=== PATIENT | female | born 1945 | race Caucasian/White ===

== ENCOUNTER 2020-09-19 08:38 | Observation (INO) ==
--- NOTE | 2020-08-19 14:27 | PAT Medication Instructions ---
Medication Instructions Date of Service August 19, 2020 Home Medications Fish Oil 1 cap PO QPM albuterol sulfate 1 inh INHALATION QID PRN aspirin 81 mg PO QAM atenolol 25 mg PO HS atorvastatin [Lipitor] 10 mg PO HS cholecalciferol (vitamin D3) 125 mcg PO QPM fluticasone furoate [Arnuity Ellipta] 1 inh INHALATION QAM fluticasone propionate [Flonase] 1 spray INTRANASAL DAILY PRN hydrochlorothiazide 25 mg PO DAILY PRN irbesartan-hydrochlorothiazide [Avalide] 1 tab PO QAM levothyroxine [Synthroid] 88 mcg PO QAM magnesium oxide 800 mg PO QAM montelukast [Singulair] 10 mg PO PM nitrofurantoin monohyd/m-cryst [Macrobid] 100 mg PO BID pantoprazole [Protonix] 20 mg PO DAILY PRN potassium chloride [Klor-Con M20] 20 meq PO QAM Continue as directed nitrofurantoin monohyd/m-cryst [Macrobid] 100 mg PO BID STOP taking 2 weeks before surgery If surgery is within 2 weeks, stop taking as soon as possible. Fish Oil 1 cap PO QPM DO NOT take the morning of surgery hydrochlorothiazide 25 mg PO DAILY PRN irbesartan-hydrochlorothiazide [Avalide] 1 tab PO QAM magnesium oxide 800 mg PO QAM potassium chloride [Klor-Con M20] 20 meq PO QAM Take morning of surgery With a small sip of water, OTHERWISE NOTHING TO EAT OR DRINK AFTER MIDNIGHT: albuterol sulfate 1 inh INHALATION QID PRN (if needed, and bring with you to the hospital) aspirin 81 mg PO QAM fluticasone furoate [Arnuity Ellipta] 1 inh INHALATION QAM fluticasone propionate [Flonase] 1 spray INTRANASAL DAILY PRN (if needed) levothyroxine [Synthroid] 88 mcg PO QAM pantoprazole [Protonix] 20 mg PO DAILY PRN (if needed) Take evening before surgery albuterol sulfate 1 inh INHALATION QID PRN (if needed) atenolol 25 mg PO HS atorvastatin [Lipitor] 10 mg PO HS cholecalciferol (vitamin D3) 125 mcg PO QPM fluticasone propionate [Flonase] 1 spray INTRANASAL DAILY PRN (if needed) montelukast [Singulair] 10 mg PO PM nitrofurantoin monohyd/m-cryst [Macrobid] 100 mg PO BID pantoprazole [Protonix] 20 mg PO DAILY PRN (if needed) Other Notes If you have any questions please call us at [phone] or [phone] or [phone] or [phone]
--- NOTE | 2020-08-20 11:26 | Anesthesiology Consultation ---
Date of Service August 20, 2020 Assessment & Plan (1) Encounter for pre-operative examination: COVID Status: As of 08/20 assessment, patient denies travel to endemic area, known exposure/sick contacts, or symptoms of COVID19. Patient instructed that they and their household members must follow strict social distancing guidelines, wear a mask in public and avoid travel for 14 days prior to surgery. Preoperative COVID19 testing to be completed prior to surgery per surgeon's a rrangements (pt instructed 09/15). Patient made aware to self-isolate as much as possible between COVID testing and surgery. Pulmonary Clearance 08/20/20 = "Based on recent PFTs, patient's fair exercise capacity, and very minimal exertional dyspnea, i believe she would be at low risk of pulmonary complications related to general anesthesia associated with knee surgery." Chart Review Chart Review: Acceptable Risk for Surgery and Patient seen in Pre Admission Testing Teaching & Discussion Instructed NPO after midnight before surgery, except medications with 15 cc of water. Medication instructions provided according to the PAT guidelines. History Surgery Operation Date: 09/19/20 11:10 Proposed Procedures p Right Total Knee Arthroplasty - Ike Alicea MD Height/Weight Height: 5 ft 1 in Weight: 120.3 kg Allergies Allergy/AdvReac Type Severity Reaction Status Date / Time Iodinated Contrast Media Allergy Intermediate HIVES Verified 08/13/20 15:42 Cipro Allergy Unknown RASH Verified 08/04/15 16:10 ciprofloxacin Allergy Unknown RASH Verified 08/13/20 15:42 dicyclomine Allergy Unknown COULDN'T Verified 08/13/20 15:42 FOCUS-BLURRED VISION prochlorperazine Allergy Unknown MORE Verified 08/13/20 15:42 NAUSEA AND VOMITING adhesive tape Allergy itching, Verified 08/13/20 17:13 redness hydrocodone AdvReac Intermediate NV,BURNING Verified 08/13/20 15:42 IN CHEST,COLD AND CLAMMY metoclopramide AdvReac Intermediate BLURRED Verified 08/13/20 15:42 VISION Medications Home Medications Medication Instructions Recorded Confirmed Last Taken Fish Oil 1 cap PO QPM 08/13/20 08/13/20 Unknown albuterol sulfate 1 inh INHALATION QID PRN 08/13/20 08/13/20 Unknown aspirin 81 mg PO QAM 08/13/20 08/13/20 Unknown atenolol 25 mg PO HS 08/13/20 08/13/20 Unknown atorvastatin [Lipitor] 10 mg PO HS 08/13/20 08/13/20 Unknown cholecalciferol (vitamin D3) 125 mcg PO QPM 08/13/20 08/13/20 Unknown [Vitamin D3] fluticasone propionate [Flonase] 1 spray INTRANASAL DAILY PRN 08/13/20 08/13/20 Unknown hydrochlorothiazide 25 mg PO DAILY PRN 08/13/20 08/13/20 Unknown irbesartan-hydrochlorothiazide 1 tab PO QAM 08/13/20 08/13/20 Unknown [Avalide] levothyroxine [Synthroid] 88 mcg PO QAM 08/13/20 08/13/20 Unknown magnesium oxide 800 mg PO QAM 08/13/20 08/13/20 Unknown montelukast [Singulair] 10 mg PO PM 08/13/20 08/13/20 Unknown nitrofurantoin monohyd/m-cryst 100 mg PO BID 08/13/20 08/13/20 Unknown [Macrobid] pantoprazole [Protonix] 20 mg PO DAILY PRN 08/13/20 08/13/20 Unknown potassium chloride [Klor-Con M20] 20 meq PO QAM 08/13/20 08/13/20 Unknown Past Medical History Medical History (Updated 08/20/20 @ 11:27 by Arnold Ray) Arthritis of both knees Asthma Very rare albuterol inhaler use, used a few weeks ago and it had been months since she had used it. Daily Arnuity inhaler was d/c'd 3 months ago by pulmonary to see if OK without it. 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 Daniels in [place] Osteoarthritis Pulmonary hypertension Follows with the lung [facility] in [place]. Recurrent UTI reason for antibiotic Renal atrophy, right Sleep apnea CPAP + oxygen qHS Exercise / Class Metabolic Activity III < 4 Walking/Shop/Light housework (Denies CP or SOB with ambulation on one level) Past Family History Family History Aunt Diabetes Sister Diabetes Other No family history of adverse response to anesthesia Past Surgical History Surgical History History of anesthesia reaction shivering History of arthroscopic knee surgery BL History of cardiac catheterization 1993 - no stents History of cholecystectomy History of colonoscopy History of D&C multiple History of esophagogastroduodenoscopy (EGD) History of foot surgery History of lymph node excision History of repair of left rotator cuff History of surgery EUS History of total abdominal hysterectomy and bilateral salpingo-oophorectomy PICC (peripherally inserted central catheter) removal PONV (postoperative nausea and vomiting) S/P PICC central line placement Past Anesthesia History No Hx of Anesthesia Complications (other than shivering after one surgery) and No Family Hx of Anesthesia Complications History of PONV No Hx of Motion Sickness and History of PONV (single episode) Social History Smoking Status: Never smoker Do You Dip or Chew Tobacco: No Hx Alcohol Use: No Hx Substance Use: No Review of Systems Pt denies any recent chest pain, shortness of breath, cough, fever, URI, or uncontrolled acid reflux. +palpitations occ Physical Exam Vital Signs BP: 137/78 P: 50bpm SPO2: 98% RA T: 97.6 R: 16 Constitutional + morbidly obese ENMT Mouth: + dentures and + edentulous Thyromental Distance: > or= 3.5 Finger Breadths Mallampati Class: II Neck + short neck; neck extension not limited Respiratory normal respiratory effort Auscultation: lungs clear to auscultation bilaterally Cardiovascular Rate/Rhythm: regular rate and regular rhythm Heart Sounds: no murmur Extremities: + edema (LLE 1+, pt reports baseline) Testing Laboratory Results 08/20/20 11:40 08/20/20 11:46 PT 10.5 Seconds (9.0-12.0) 08/20/20 11:40 INR 1.0 (0.9-1.1) 08/20/20 11:40 APTT 27.3 Seconds (21.0-31.0) 08/20/20 11:40 Blood Type A Negative 08/20/20 11:40 Antibody Screen NEGATIVE 08/20/20 11:40 Electrocardiogram Date: 08/20/20 Findings: + SB @ (51bpm) Chest X-Ray Date: 08/20/20 Findings: + NAD
--- NOTE | 2020-08-20 12:15 | XRay Report ---
XR chest Pre-admission PA/Lat CLINICAL HISTORY: Preoperative chest COMPARISON STUDY: No previous studies for comparison. FINDINGS: The heart is borderline enlarged. There is no failure. There is no focal pulmonary consolid ation. There are no pleural effusions. Degenerative changes are present within the dorsal spine.[ IMPRESSION: No active disease in the chest. ACT 112: Negative or not required by law. Electronically signed by: Bertrand Morse M.D. 08/20/2020 12:14 PM
[2020-08-20 12:44] LABS: Basophils # (auto) 0.01 K/uL (0-0.2); Basophils % (auto) 0.2 %; Eosinophils # (auto) 0.31 K/uL (0-0.5); Eosinophils % (auto) 5.6 %; Hemoglobin 13.7 g/dL (12.0-16.0); Lymphocytes # (auto) 1.45 K/uL (1.2-3.4); Lymphocytes % (auto) 26.1 %; Mean Corpuscular Hgb Conc 32.6 g/dL (32-36); Mean Corpuscular Volume 92.1 fL (80-100); Mean Platelet Volume 9.6 fL (7.4-10.4); Monocytes # (auto) 0.49 K/uL (0.11-0.59); Monocytes % (auto) 8.8 %; Neutrophils % (auto) 59.3 %; Platelet Count 164 K/uL (130-400); RDW Coefficient of Variation 13.9 % (11.5-14.5); RDW Standard Deviation 46.2 fL (36.4-46.3); Red Blood Count 4.56 M/uL (4.2-5.4); White Blood Count 5.56 K/uL (4.8-10.8)
[2020-08-20 12:59] LABS: Partial Thromboplastin Time 27.3 Seconds (21.0-31.0); Prothrombin Time 10.5 Seconds (9.0-12.0)
[2020-08-20 13:07] LABS: BUN Creatinine Ratio 28.6 (10-20); Calcium 9.6 mg/dl (8.5-10.1); Creatinine Clr Calc Pharmacy 73.2 ml/min; Est GFR (Non-African American) 73.3
--- NOTE | 2020-08-21 06:05 | Electrocardiogram Report ---
Test Reason : Blood Pressure : / mmHG Vent. Rate : 051 BPM Atrial Rate : 051 BPM P-R Int : 184 ms QRS Dur : 088 ms QT Int : 436 ms P-R-T Axes : 059 028 048 degrees QTc Int : 401 ms Sinus bradycardia Otherwise normal ECG No previous ECGs available Confirmed by Jake Perez ([id number]) on 08/21/2020 6:05:05 AM Referred By: Ike Alicea Confirmed By:Jake Perez
--- NOTE | 2020-09-13 13:25 | History and Physical Report ---
DATE OF ADMISSION: 09/19/2020 CHIEF COMPLAINT: Bilateral knee pain and discomfort, right side greater than left. HISTORY OF PRESENT ILLNESS: The patient is a 75-year-old white female from [place] who presents for surgical treatment of her right knee. She has a long history of knee problems, followed by Dr. Green in [place]. She had her right knee scoped in 2004 and left one in 2005. She has also been seen by Dr. Woo at the [facility] and he has been managing her over the years. She has been treated with NSAIDs, which have limited use anymore. She only has a single kidney, so she has to be careful with NSAID use. She had multiple injections, which helped initially but became less successful over time. She tried viscosupplementation without any relief at all. She has got global pain in both knees. The right knee is worse than the left. She now would like to have her knee fixed. PAST MEDICAL HISTORY: Significant for, 1. Hypothyroidism. 2. Hypertension. 3. Elevated cholesterol. 4. Asthma. 5. Single functioning kidney. 6. Obesity. PAST SURGICAL HISTORY: Includes, 1. Right rotator cuff surgery. 2. Cholecystectomy. 3. Hysterectomy. 4. Foot surgery. ALLERGIES: REGLAN, CIPRO, LORTAB, COMPAZINE. CURRENT MEDICINES: Include, 1. Albuterol. 2. Aspirin. 3. Atenolol. 4. Atorvastatin. 5. Unspecified inhaler. 6. Hydrochlorothiazide. 7. Levothyroxine. 8. Fish oil. 9. Macrobid. 10. Protonix. 11. Singulair. SOCIAL HISTORY: Significant for a 75-year-old white female. She is from [place]. Does not drink. Does not smoke. FAMILY HISTORY: Significant for some blood clots and heart disease. REVIEW OF HISTORY: Negative for diabetes, neurologic problem, vascular problems, bleeding disorders. No chest pain or shortness of breath. No history of DVT or PE. PHYSICAL EXAMINATION: Shows a pleasant elderly female. Examination of the right knee reveals the patient walks with a waddling gait. She has got a fairly large soft tissue envelope. Slight varus deformity to her knee. She is tender over the medial joint line. Range of motion 5-120. No instability. No pain with hip motion. X-RAYS: X-rays of the right knee reveal advanced right knee DJD. She has got complete loss of her medial joint space. She has got osteophytes posteriorly. She has subchondral sclerosis. Both knees are pretty equal. ASSESSMENT: A 75-year-old white female with advanced bilateral knee degenerative joint disease, right side more symptomatic than the left. She has failed conservative treatment and would like to have her right knee replaced. She only has a single functioning kidney, so we have to be careful with non-steroidal anti-inflammatory drug use. PLAN: We will take her to the operating room and do right total knee replacement. The risks and benefits of this procedure were explained to the patient including but not limited to DVT, PE, , infection, neurological injury, vascular injury, bleeding problem, pain, limited range of motion, stiffness, failure to relieve her symptoms, incomplete relief of symptoms, need for further surgery in the future, fracture, leg length inequality, etc. The patient understands and desires to proceed. Informed consent was obtained. We will make sure that she takes her atenolol on the morning of surgery. She is planning to be discharged to home using [facility] home health program. [facility]
[~2020-09-19 08:38] MED LIST: ACETAMINOPHEN 500 MG TAB PO SCH; BUPIVACAINE 0.5 % 5 MG/1 ML PF 10ML VIAL ONE; BUPIVACAINE LIPOSOME/PF 266 MG, BUPIVACAINE/EPINEPHRINE 50 ML, SODIUM CHLORIDE 0.9% 30 ... INFIL SCH; BUPIVACAINE/EPINEPHRINE 0.25% 1:200,000 30 ML VIAL ONE; DEXAMETHASONE SOD INJ 4 MG/ML VIAL ONE; FAMOTIDINE 20 MG TAB PO SCH; GABAPENTIN 300 MG CAP PO SCH; LR 500ML BOLUS, THEN 15ML/HR IV SCH; LR 60ML/HR IV SCH; TRANEXAMIC ACID 1,000 MG **IV Intra-op IV SCH
--- NOTE | 2020-09-19 08:49 | History & Physical Bridge Note ---
Date of Service September 19, 2020 History & Physical Bridge Note I have examined the patient, reviewed the History & Physical and in the interval since the performance of the History & Physical I have noted the following changes of clinical significance: no changes noted
[2020-09-19] MEDS ORDERED: LIDOCAINE HCL 2% 2 ML VIAL/AMP(20MG/ML) INFIL ONE ×2 (09:36→13:05)
[2020-09-19] MEDS ORDERED: PROPOFOL IV EMULSION 10 MG/ML 20 ML VIAL IV ONE ×3 (09:36→13:05)
[2020-09-19] MEDS ORDERED: ONDANSETRON INJ 2 MG/ML 2 ML VIAL ONE (09:37)
[2020-09-19] MEDS ORDERED: fentaNYL citrate 100 MCG/2 ML VIAL ONE (09:37)
[2020-09-19] MEDS ORDERED: MIDAZOLAM HCL 1 MG/ML 2ML VIAL ONE (09:37)
[2020-09-19] MEDS ORDERED: DEXAMETHASONE SOD INJ 4 MG/ML VIAL ONE (09:37)
[2020-09-19] MEDS ORDERED: fentaNYL citrate 100 MCG/2 ML VIAL IV PRN (10:42)
[2020-09-19] MEDS ORDERED: ATROPINE SULFATE 0.1 MG/ML 10ML SYR IV PRN (10:42)
[2020-09-19] MEDS ORDERED: ePHEDrine sulfate 50 MG/ML AMP IV PRN (10:42)
[2020-09-19] MEDS ORDERED: ONDANSETRON INJ 2 MG/ML 2 ML VIAL IV PRN ×2 (10:42→15:10)
[2020-09-19] MEDS ORDERED: SODIUM CHLORIDE 0.9% PF 50 ML VIAL ONE (11:29)
[2020-09-19] MEDS ORDERED: BACITRACIN INJ 50,000 UNIT VIAL ONE (11:30)
[2020-09-19] MEDS ORDERED: BUPIVACAINE LIPOSOME 1.3% 266 MG/20 ML VIAL ONE (11:30)
[2020-09-19] MEDS ORDERED: BUPIVACAINE 0.25% 30 ML VIAL ONE (11:30)
[2020-09-19] MEDS ORDERED: EPINEPHrine INJ 1 MG/ML AMP ONE (11:30)
[2020-09-19] MEDS ORDERED: PHENYLEPHRINE 100MCG/ML 5ML SYR ONE (11:54)
[2020-09-19] MEDS ORDERED: VANCOMYCIN HCL 1000MG/20ML VIAL ONE (11:58)
[2020-09-19] MEDS ORDERED: ePHEDrine sulfate 50 MG/ML SYR ONE (12:12)
--- NOTE | 2020-09-19 13:24 | Post Operative Brief Note ---
PG Immediate Post Op with CF Date of Surgery September 19, 2020 Pre & Post Diagnosis Operation Date: 09/19/20 10:40 Pre-Op Diagnosis: Right Knee Degenerative Joint Disease Post-Op Diagnosis: Right Knee Degenerative Joint Disease I identified the patient and participated in the time-out.: Yes Procedure Operation Date: 09/19/20 10:40 Actual Procedures p Right Total Knee Replacement(Right) - Ike Alicea MD Surgeon Ike Alicea MD Goggles Assembler Melissa, PAC Estimated Blood Loss 50 Findings Consistent with Post-Op Diagnosis Fluids 600 cc Specimens Specimen Description: Permanent Solution: A.) Right Knee Bone and Tissue Drains Schwartz Catheter (16F 10ml balloon; inserted without difficulty by Mckay Torres PA-C.) Anesthesia Type Spinal MAC Complications none Disposition Accompanied Patient To Recovery: No Disposition: Recovery Room
--- NOTE | 2020-09-19 13:36 | Operative Report ---
Post Operative Report Pre & Post Diagnosis Operation Date: 09/19/20 10:40 Pre-Op Diagnosis: Right Knee Degenerative Joint Disease Post-Op Diagnosis: Right Knee Degenerative Joint Disease I identified the patient and participated in the time-out.: Yes Procedure Operation Date: 09/19/20 10:40 Actual Procedures p Right Total Knee Replacement(Right) - Ike Alicea MD Surgeon Ike Alicea MD Barrel Inspector Tight Melissa, PAC Estimated Blood Loss 50 Findings Consistent with Post-Op Diagnosis Operative findings revealed advanced right knee DJD with extensive grade 4 [id number] disease in the medial compartment primarily. She had eburnation the medial femoral condyle and medial tibial plateau. There were significant osteophytes off the medial side of the knee. Moderate-sized joint effusion. Moderate patellofemoral arthritis. Slight varus deformity to her knee. Fluids 600 cc. Specimens Right knee sent for pathology. Drains None. Anesthesia Type Spinal MAC Complications none Disposition Accompanied Patient To Recovery: No Disposition: Recovery Room Indications Patient is a 75-year-old female is had a long history of bilateral knee pain discomfort right side greater than left patient been through extensive conservative treatment the past. She failed all conservative measures. X-rays show advanced right knee DJD. She elected proceed with surgical treatment. Of note, this patient has a BMI of 50. Description of Procedure Operative implants consist of: 1. Biomet Vanguard size 65 right posterior stabilized femoral component. 2. Biomet size 67 tibial tray. 3. 10 mm posterior stabilized polyethylene insert. 4. 28 x 8 all polypatella. The patient was taken to the operating room, identified, and placed on the operating table supine position but all contact areas were properly padded. IV antibiotics arrived by anesthesia team. Spinal anesthetic and abductor canal block had been provided in the holding area. Schwartz catheter was placed in sterile fashion. Right thigh turn was then placed in the right lower extremities and prepped draped in usual sterile fashion. The right leg was elevated exsanguinated with use of an Esmarch interspace at 300 mmHg. An anterior approach to the right knee was then performed to longitudinal incision centered over the patella. Sharp dissection was got through subcutaneous tissue down the extensor mechanism. A medial parapatellar arthrotomy incision was made. Some subperiosteal dissection was carried out medially. The fat pad was resected from each patella tendon. Lateral patellofemoral ligament was released. Patella was subluxated laterally and the knee was flexed. The osteophytes were taken off distal femur. The ACL and PCL were then released from distal femur and the tibia subluxated anteriorly. The external treatment line jig was then placed in the interface the tibia and adjusted 14 mm medially. Tibial cut was made to take about a millimeter or 2 of bone from most efficient aspect medial till plateau. Some osteophytes were taken off medial and posterior medially. The tibia sized to a size 67. Attention drawn the femur. The distal femur there with a sharp drill. Intramedullary canal was suction. A right 5 degree valgus cutting guide was placed. Distal femoral cutting block was pinned in place. Distal femoral cut was made to take an additional 3 mm of bone off distal femur. The femur was then sized to a size 65. The AP cutting block was pinned parallel to the epicondylar axis which was 3 degrees of external rotation. The anterior cut, anterior chamfer, posterior cut, posterior chamfer cuts were made. Box cutting guide was placed in just slight lateral box cut was made. The knee was flexed. The remnants of the medial lateral menisci were excised. The osteophytes were taken off the posterior aspect of the femur. A trial femoral component was placed. The tibial tray was pinned in maximum external rotation and the drill and stem punch were used. Defect in proximal to for the tibial tray. Knee was then trialed and the 10 mm insert fit most appropriately. Attention drawn the patella. The patella was cleaned of all soft tissues. Patella thickness measured 21 mm in thickness was cut down to 13. Was sized to a size 28 patella. The lug holes were drilled for the 28 patella. The lateral osteophyte was removed. Patella button was placed. Knee was taken through range of motion patella tracked nicely with no thumbs test. Attention drawn to place the permanent components. All trial components were removed. Bone plug was placed in the distal femur limit blood loss put a double batch [place] G cement was mixed. I did add an additional gram of vancomycin due to her morbid obesity and increased risk of infection. A Biomet Vanguard size 65 right posterior stabilized femoral component, size 67 tibial tray, 10 mm posterior to both eyes polyethylene insert, and a 28 x 8 all polypatella were then cemented in place. The knee was brought out into full extension total cement hardened. Final cement check was then performed. The pericapsular tissues were injected with total 100 cc of combination of 20 of Exparel, 30 cc normal saline, 50 cc of quarter percent Marcaine with epinephrine. Patient did receive 1 g tranexamic acid. The tract was then let down for final turn time 54 minutes. Hemostasis during this electrocautery. The extensor mechanism closed with combination 1 PDS suture #1 Vicryl suture in [id number] fashion. Extensor mechanism checked found to be intact and the subcutaneous is then closed with 2 Dexon suture buried interrupted fashion skin was closed skin jennifer. Legs then cleaned dried a sterile dressing was Xeroform, 4 by fours, sterile cast padding, Jose Manuel bandage were applied. Patient then transferred to the recovery room in stable condition. Patient tolerated procedure well and there were no complications. Mckay Torres, my physician assistant production editor, was present for the entire procedure. His assistance was essential and required for appropriate patient positioning, prepping and draping, surgical exposure, performing the technical details of the operation, placement the implants, closure of the wound, and placement of the sterile bandage. I attest to the content of the Intraoperative Record and any orders documented therein. Any exceptions are noted below.
--- NOTE | 2020-09-19 14:09 | XRay Report ---
RIGHT KNEE 2 VIEWS History: Right total knee arthroplasty. Degenerative arthritis. Postop. FINDINGS: The patient is status post a right total knee arthroplasty. The hardware is intact. No frac ture or dislocation. Skin jennifer are in place. IMPRESSION: Right total knee arthroplasty. No evidence for hardware complication. ACT 112: Negative or not required by law. Electronically signed by: Gabriel Aldridge M.D. 09/19/2020 2:07 PM
[2020-09-19] MEDS ORDERED: ALUMINUM/MAGNESIUM SUSP 30 ML UDC PO PRN (15:10)
[2020-09-19] MEDS ORDERED: HYDROmorphone INJ 0.5 MG/0.5 ML SYR IV PRN (15:10)
[2020-09-19] MEDS ORDERED: METOCLOPRAMIDE HCL INJ 5 MG/ML 2 ML VIAL IV PRN (15:10)
[2020-09-19] MEDS ORDERED: NALOXONE HCL 0.4 MG/1 ML VIAL/CARP IV PRN (15:10)
[2020-09-19] MEDS ORDERED: bisacodyL 10 MG SUPP PR PRN (15:10)
[2020-09-19] MEDS ORDERED: MAGNESIUM HYDROXIDE SUSP 30 ML UDC PO PRN (15:10)
--- NOTE | 2020-09-19 15:11 | Anesthesiology Progress Note ---
Date of Service September 19, 2020 Anesthesia Post Procedure Vital Signs Vital Signs: Temp Pulse Pulse Resp BP BP Pulse Ox 09/19/20 14:30 36.3 C L 62 19 124/61 96 09/19/20 14:20 63 14 123/58 L 99 09/19/20 14:10 66 15 126/70 95 09/19/20 14:00 70 15 126/65 94 09/19/20 13:50 68 18 127/62 98 09/19/20 13:40 73 17 126/55 L 100 09/19/20 13:32 36.1 C L 73 20 121/58 L 100 09/19/20 10:21 51 L 20 121/57 L 100 09/19/20 09:31 36.8 C 58 L 22 126/50 L 96 Pain Intensity Right Leg: Pain Intensity: 10 Transfer of Care Handoff Completed per policy Notes Mental Status: alert / awake / arousable Patient Amnestic to Procedure: Yes Nausea / Vomiting: adequately controlled Pain: adequately controlled Airway Patency, RR, SpO2: stable & adequate BP & HR: stable & adequate Hydration State: stable & adequate Neuraxial Anesthesia: was administered and sensory block is resolving Anesthetic Complications: no major complications apparent and Pt Satisfied with anesthetic care
[2020-09-19] MEDS ORDERED: ALBUTEROL HFA 8 GM INHALER INH PRN (15:30)
[2020-09-19] MEDS ORDERED: hydroCHLOROthiazide 25 MG TAB PO PRN (15:30)
[2020-09-19] MEDS ORDERED: PANTOprazole 40 MG TAB PO PRN (15:30)
[2020-09-19] MEDS ORDERED: FLUTICASONE PROPIONATE NA SPR 16 GM BTL NAE PRN (15:30)
[2020-09-19] MEDS: ACETAMINOPHEN 500 MG TAB PO SCH ×2 (16:01→21:24)
[2020-09-19] MEDS: KETOROLAC TROMETHAMINE 15 MG/ML VIAL IV SCH ×2 (16:01→21:27)
[2020-09-19] MEDS: SODIUM CHLORIDE 0.9% 1000ML 1,000 ML IV SCH (16:01)
[2020-09-19] MEDS: FERROUS GLUCONATE 324 MG TAB PO SCH (17:27)
[2020-09-19] MEDS: ASCORBIC ACID 500 MG TAB PO SCH (17:27)
[2020-09-19] MEDS: ceFAZolin 2000MG 2,000 MG/15 ML SYR IV SCH (19:23)
[2020-09-19] MEDS ORDERED: TRANEXAMIC ACID / 0.7% NACL 1,000 MG/100 ML BAG IV SCH (19:30)
[2020-09-19] MEDS ORDERED: MACROBID 100MG HOME PACK 1 EA VIAL PO SCH (21:00)
[2020-09-19] MEDS: SENNA 8.6 MG TAB PO SCH (21:22)
[2020-09-19] MEDS: ASPIRIN 81 MG ECTAB PO SCH (21:22)
[2020-09-19] MEDS: ATENOLOL 25 MG TABLET PO SCH (21:23)
[2020-09-19] MEDS: CHOLECALCIFEROL 1,000 UNITS 25 MCG TAB PO SCH (21:24)
[2020-09-19] MEDS: DOCUSATE SODIUM 100 MG CAP PO SCH (21:25)
[2020-09-19] MEDS: ATORVASTATIN 10 MG TAB PO SCH (21:25)
[2020-09-19] MEDS: MONTELUKAST SODIUM 10 MG TABLET PO SCH (21:26)
[2020-09-20] MEDS: SODIUM CHLORIDE 0.9% 1000ML 1,000 ML IV SCH (01:38)
[2020-09-20] MEDS: ceFAZolin 2000MG 2,000 MG/15 ML SYR IV SCH (03:49)
[2020-09-20] MEDS: KETOROLAC TROMETHAMINE 15 MG/ML VIAL IV SCH (03:49)
[2020-09-20] MEDS: ACETAMINOPHEN 500 MG TAB PO SCH ×3 (05:31→22:08)
[2020-09-20] MEDS: LEVOTHYROXINE SODIUM 88 MCG TABLET PO SCH (05:31)
[2020-09-20 07:58] LABS: Hematocrit (blood only) 36.3 % (37-47); Hemoglobin 11.6 g/dL (12.0-16.0); Mean Corpuscular Volume 90.8 fL (80-100); Mean Platelet Volume 9.7 fL (7.4-10.4); Platelet Count 161 K/uL (130-400); RDW Coefficient of Variation 13.8 % (11.5-14.5); RDW Standard Deviation 45.9 fL (36.4-46.3)
[2020-09-20 08:26] LABS: BUN Creatinine Ratio 22.8 (10-20); Calcium 8.8 mg/dl (8.5-10.1); Creatinine Clr Calc Pharmacy 39.8 ml/min; Est GFR (African American) 40.8; Est GFR (Non-African American) 35.2; Potassium 4.4 mmol/L (3.5-5.1)
[2020-09-20] MEDS: MAGNESIUM OXIDE 400 MG TAB PO SCH (08:45)
[2020-09-20] MEDS: POTASSIUM CHLORIDE 20 MEQ TABCR PO SCH (08:45)
[2020-09-20] MEDS: MULTIVITAMIN TAB PO SCH (08:45)
[2020-09-20] MEDS: ASPIRIN 81 MG ECTAB PO SCH ×2 (08:45→20:30)
[2020-09-20] MEDS: DOCUSATE SODIUM 100 MG CAP PO SCH ×2 (08:46→16:26)
[2020-09-20] MEDS: FERROUS GLUCONATE 324 MG TAB PO SCH ×2 (08:46→18:06)
[2020-09-20] MEDS: ASCORBIC ACID 500 MG TAB PO SCH ×2 (08:46→18:06)
[2020-09-20] MEDS: IRBESARTAN 150 MG TAB PO SCH (08:46)
[2020-09-20] MEDS: hydroCHLOROthiazide 25 MG TAB PO SCH (08:46)
[2020-09-20] MEDS ORDERED: IRBESARTAN HYDROCHLOROTHIAZIDE PO SCH (09:00)
--- NOTE | 2020-09-20 09:39 | Progress Notes ---
DATE: 09/20/2020 SUBJECTIVE: A 75-year-old white female postop day 1 from right knee replacement. She is doing well this morning. Pain is controlled. No chest pain or shortness of breath. Not feeling dizzy or lightheaded. OBJECTIVE: VITAL SIGNS: Temperature 36.4. Vital signs stable. GENERAL: Shows a pleasant elderly female. She is sitting up in bed, looks pretty comfortable this morning. LUNGS: Clear to auscultation. HEART: Regular rate and rhythm. ABDOMEN: Soft, nontender, nondistended. EXTREMITIES: Grossly neurovascularly intact except as follows. Examination of the right leg reveals the leg to be well aligned. Pretty large soft tissue envelope. She can dorsiflex and plantarflex her foot appropriately. She is neurologically intact. LABORATORY DATA: Hemoglobin 11.6. Hematocrit 36.3. Electrolytes are stable. Creatinine slightly elevated at 1.43. ASSESSMENT: A 75-year-old white female postop day 1 from right knee replacement, doing reasonably well. Her pain is controlled. Creatinine is a little bit elevated, likely related to volume depletion, possibly related to some Toradol. Her pain is controlled. She does have a history of urinary tract infection and being treated with Bactrim. She is asymptomatic. PLAN: 1. DVT prophylaxis including thigh-high TEDs, SCDs, and aspirin twice a day. 2. PT/OT. Weight bear as tolerated. Right total knee protocol. 3. Pain control, doing well with current pain regimen. 4. Elevated creatinine. We are going to hold her Toradol, encourage oral intake and recheck this tomorrow. 5. Disposition: She is planning to be discharged to home with some home health once adequately recovered and medically stable.
[2020-09-20] MEDS: traMADol HCL 50 MG TABLET PO PRN ×2 (12:10→18:54)
[2020-09-20] MEDS: SENNA 8.6 MG TAB PO SCH (16:26)
[2020-09-20] MEDS: ATENOLOL 25 MG TABLET PO SCH (20:30)
[2020-09-20] MEDS: CHOLECALCIFEROL 1,000 UNITS 25 MCG TAB PO SCH (20:30)
[2020-09-20] MEDS: MONTELUKAST SODIUM 10 MG TABLET PO SCH (20:30)
[2020-09-20] MEDS: ATORVASTATIN 10 MG TAB PO SCH (20:30)
[2020-09-21] MEDS: ACETAMINOPHEN 500 MG TAB PO SCH (05:40)
[2020-09-21] MEDS: LEVOTHYROXINE SODIUM 88 MCG TABLET PO SCH (05:40)
[2020-09-21] MEDS: MULTIVITAMIN TAB PO SCH (07:37)
[2020-09-21] MEDS: MAGNESIUM OXIDE 400 MG TAB PO SCH (07:37)
[2020-09-21] MEDS: IRBESARTAN 150 MG TAB PO SCH (07:37)
[2020-09-21] MEDS: DOCUSATE SODIUM 100 MG CAP PO SCH (07:38)
[2020-09-21] MEDS: ASCORBIC ACID 500 MG TAB PO SCH (07:38)
[2020-09-21] MEDS: FERROUS GLUCONATE 324 MG TAB PO SCH (07:38)
[2020-09-21] MEDS: POTASSIUM CHLORIDE 20 MEQ TABCR PO SCH (07:38)
[2020-09-21] MEDS: ASPIRIN 81 MG ECTAB PO SCH (07:38)
[2020-09-21] MEDS: hydroCHLOROthiazide 25 MG TAB PO SCH (07:38)
[2020-09-21] MEDS ORDERED: ONDANSETRON 4 MG OD TAB PO PRN (07:53)
[2020-09-21 08:23] LABS: BUN Creatinine Ratio 34.1 (10-20); Calcium 9.2 mg/dl (8.5-10.1); Creatinine Clr Calc Pharmacy 51.7 ml/min; Est GFR (African American) 56.1; Est GFR (Non-African American) 48.4; Potassium 5.4 mmol/L (3.5-5.1)
--- NOTE | 2020-09-21 08:52 | Progress Notes ---
DATE: 09/21/2020 SUBJECTIVE: A 75-year-old white female postop day 2 from right knee replacement. She is doing okay. A little nauseated this morning. No chest pain or shortness of breath. Not feeling dizzy or lightheaded. OBJECTIVE: VITAL SIGNS: Temperature 36.4. Vital signs stable. GENERAL: Shows a pleasant elderly female. She is sitting up in bed and eating her breakfast. EXTREMITIES: Examination of the right leg reveals the leg to be well aligned. Fairly large soft tissue envelope. Dressing is clean, dry and intact. Calf is soft and supple. She is neurologically intact. LABORATORY DATA: Labs are pending. ASSESSMENT: A 75-year-old white female postop day 2 from right knee replacement, doing pretty well. She is nauseated likely from some pain medicine. Her pain otherwise, is controlled. PLAN: 1. DVT prophylaxis including thigh-high TEDs, SCDs, and aspirin twice a day. 2. PT/OT. Weight bear as tolerated. Right total knee protocol. 3. Pain control, doing okay with current pain regimen. 4. Nausea. We will write for some Zofran on discharge. 5. Disposition: Plan to discharge to home with some home health later today.
--- NOTE | 2020-09-23 06:38 | Discharge Summary ---
Date of Service September 23, 2020 Admission HPI Per Admitting Provider Documented in the H & P Admission Exam (Per Admitting) Constitutional Documented in the H & P Discharge Data Consultations 09/19/20 15:10 Consult Case Management - Discharge Planning Routine Procedures Performed Operation Date: 09/19/20 10:40 Actual Procedures p Right Total Knee Replacement(Right) - Ike Alicea MD Hospital Course (1) Status post total right knee replacement: This patient is a 75 year old female admitted on 09/19/20 and underwent total knee arthroplasty. She tolerated the procedure well and there were no complications. Transferred to the PACU post op and later to the orthopedic floor for further care. She was given ancef for antibiotic prophylaxis. She was also given MANSI stockings, SCDs, and aspirin for DVT prophylaxis. Hemoglobin, hematocrit, and vital signs were monitored during her hospital stay and remained stable. Did not require any blood transfusions. There were no complications during her hospital stay. By post op day #2 the patient was tolerating a regular diet, pain was reasonably controlled with oral pain medicine, and she was participating in physical therapy. On post op day #2 the patient was discharged home and set up with home health care. She was given printed discharge instructions including prescriptions for extra strength tylenol, aspirin, zofran, and tramadol. Continue physical therapy, weight bearing as tolerated. Continue MANSI stockings. Follow up approximately 2 weeks post op or sooner if there are problems or johny rns. Coding Level of Care Code None Diagnoses Status post total right knee replacement Z96.651
== END 2020-09-21 13:39 | disposition home health service (06) ==
LOC: 3E 08:38 → ASU 08:38